=== PATIENT | female | born 2000 | race Two or more races ===

== ENCOUNTER 2024-11-24 11:24 | Emergency (ER) | payer OTHER ==
[~2024-11-24] VITALS: Ht 157.5 cm; Wt 61.8 kg
[2024-11-24 12:09] VITALS: BP 138/91; PULSE 83; RESP 16; TEMP 98.1; O2SAT 98
--- NOTE | 2024-11-24 12:09 | ED.PDOC ---
History of Present Illness HPI Comments 24 y/o F presents from urgent care for TB-test assessment, today. Patient endorses on being sent from [facility] urgent care facility during followup appointment after receiving her TB shot for personal reasons. She admits to receiving said shot in her left forearm. She denies any symptoms at this time. Chief Complaint: Wound Check Time Seen by MD: 12:00 Reviewed Notes: Nurses Notes, Medications, Allergies Allergies: Coded Allergies: NO KNOWN ALLERGIES (Unverified , 11/24/24) Information Source: Patient Mode of Arrival: Ambulatory Severity: Moderate Timing: Days Duration: Since onset Prehospital treatment: None Past Medical History PAST MEDICAL HISTORY: Denies Surgical History: Denies all surgeries SERVICE DELIVERY CONSULTANT History: No Pertinent SERVICE DELIVERY CONSULTANT History Family History Family History: Unknown Social History Smoker: Non-Smoker Alcohol: Denies ETOH Use Drugs: Denies Drug Use Lives In: Home All Other Systems: Reviewed and Negative (negative ) Physical Exam General Appearance: No Apparent Distress, Normal HEENT: Normal ENT Inspection, Pharynx Normal, TMs Normal Neck: Full Range of Motion, Non-Tender, Normal, Normal Inspection Respiratory: Chest Non-Tender, Lungs Clear, No Accessory Muscle Use, No Respiratory Distress, Normal Breath Sounds Cardiovascular: No Edema, No JVD, No Murmur, No Gallop, Normal Peripheral Pulses, Regular Rate/Rhythm Breast Exam: Deferred Gastrointestinal: No Organomegaly, Non Tender, No Pulsatile Mass, Normal Bowel Sounds, Soft Genitalia: Deferred Pelvic: Deferred Rectal: Deferred Extremities: No calf tenderness, Normal capillary refill, Normal inspection, Normal range of motion, Non-tender, No pedal edema Musculoskeletal : Apperance: Normal Neurologic: Alert, town planner II-XII nml as Tested, No Motor Deficits, Normal Affect, Normal Mood, No Sensory Deficits Cerebellar Function: Normal Reflexes: Normal Skin: Dry, Normal Color, Warm Lymphatic: No Adenopathy Was a procedure done? Was a procedure done?: No Differential Dx Considerations may include: TB test reading X-Ray, Labs, Meds, VS Vital Signs Date Time Temp Pulse Resp B/P (MAP) Pulse Ox O2 Delivery O2 Flow Rate FiO2 11/24/24 12:09 83 16 98 Room Air 11/24/24 12:09 98.1 83 16 138/91 (107) 98 98.1 11/24/24 11:30 98.1 56 16 159/102 (121) 100 Time of 1ST Reevaluation: 12:10 Reevaluation 1ST: Unchanged Patient Education/Counseling: Diagnosis, Treatment Family Education/Counseling: No Family Present Departure 1 Departure Time of Disposition: 17:34 Impression: Primary Impression: Tuberculin skin test reading encounter Disposition: 01 HOME / SELF CARE / HOMELESS Condition: Stable Discharged With: Self Critical Care Note Critical Care Time?: No Stability Stability form required: No Heart Score Heart Score: Heart Score Response (Comments) Value History N/A 0 EKG N/A 0 Age N/A 0 Risk Factors N/A 0 Troponin N/A 0 Total 0 I personally scribed for MANNY FLYNN MD ([email or web address]) on 11/24/24 at 12:09. Electronically submitted by Jese Riley ([email or web address]). MANNY FLYNN MD Nov 24, 2024 12:09
== END 2024-11-24 12:14 | disposition home or self-care (01) ==
LOC: ER 11:24
DX: Z11.1 Encounter for screening for respiratory tuberculosis (principal)